=== PATIENT | male | born 1930 | race Caucasian/White ===

== ENCOUNTER 2017-12-31 18:15 | Inpatient (IN) ==
--- NOTE | 2017-12-31 18:32 | XR ---
EXAM DATE: 12/31/2017 6:27 PM EST AGE/SEX: 89 years / Male INDICATIONS: Trauma alert. CLINICAL DATA: This is the patient's initial encounter. Patient reports that signs and symptoms have been present for 1 day and indicates a pain score of Nonresponsive. MEDICAL/SURGICAL HISTORY: Non-responsive. Non-responsive. COMPARISON: No prior exams available for comparison. FINDINGS: A single AP supine portable view of the chest was obtained and demonstrates overlying artifact from a backboard. There is a left subclavian A-V sequential transvenous pacer in place with epicardial pace r lead. The heart size is enlarged with no definite confluent infiltrates or effusions. The tip of th e left costophrenic angle is cut off the exam. There is no evidence of midline shift. Atherosclerotic calcifications are present in the aorta. CONCLUSION: 1. No acute cardiopulmonary disease. 2. Cardiomegaly. Electronically signed by: Fabrizio Onofre MD 12/31/2017 6:30 PM EST
--- NOTE | 2017-12-31 18:33 | XR ---
EXAM DATE: 12/31/2017 6:29 PM EST AGE/SEX: 89 years / Male INDICATIONS: Trauma alert. CLINICAL DATA: This is the patient's initial encounter. Patient reports that signs and symptoms have been present for 1 day and indicates a pain score of Nonresponsive. MEDICAL/SURGICAL HISTORY: Non-responsive. Non-responsive. COMPARISON: No prior exams available for comparison. FINDINGS: A single AP portable supine view of the pelvis was obtained. The patient is rotated and there is over lying artifact from a backboard. The patient is status post left hip arthroplasty. There is diffuse o steopenia with no acute fracture or malalignment. The sacrum appears intact. There are degenerative d isc changes in the lower lumbar spine. Vascular calcifications are present. CONCLUSION: Negative rotated trauma study. Electronically signed by: Fabrizio Onofre MD 12/31/2017 6:32 PM EST
[2017-12-31] MEDS ORDERED: PROTHROMBIN COMPLEX IV.SIG ONE (18:38)
--- NOTE | 2017-12-31 18:41 | CT ---
EXAM DATE: 12/31/2017 6:36 PM EST AGE/SEX: 89 years / Male INDICATIONS: Trauma alert, fall today. CLINICAL DATA: This is the patient's initial encounter. Patient reports that signs and symptoms have been present for 1 day and indicates a pain score of Nonresponsive. MEDICAL/SURGICAL HISTORY: Non-responsive. Non-responsive. RADIATION DOSE: 58.52 CTDI (mGy) COMPARISON: No prior exams available for comparison. TECHNIQUE: CT of the head without contrast. Using automated exposure control and adjustment of the mA and/or kV according to patient size, radiation dose was kept as low as reasonably achievable to ob tain optimal diagnostic quality images. DICOM format image data is available electronically for revi ew and comparison. FINDINGS: Cerebrum: The ventricles are normal for age with moderate atrophic change. No evidence of midline sh ift, mass lesion, hemorrhage or acute infarction. No extraaxial fluid collections are seen. Posterior Fossa: The cerebellum and brainstem are intact. The 4th ventricle is midline. The cerebe llopontine angle is unremarkable. Extracranial: The visualized portion of the orbits is intact. Skull: The calvaria is intact. No evidence of skull fracture. There is soft tissue swelling over th e left parietal bone. CONCLUSION: 1. Soft tissue swelling of the left parietal bone with no evidence of fracture. 2. No acute hemorrhage or mass effect. 3. Moderate atrophic changes. . Electronically signed by: Fabrizio Onofre MD 12/31/2017 6:40 PM EST
[2017-12-31 18:43] LABS: Baso # (Auto) 0.1 th/mm3 (0.0-0.2); Baso % (Auto) 0.8 % (0.0-2.0); Eos # (Auto) 0.5 th/mm3 (0.0-0.4); Eos % (Auto) 5.5 % (0.0-4.0); Hematocrit 42.5 % (39.0-51.0); Hemoglobin 14.3 gm/dL (13.0-17.0); Lymph # (Auto) 2.5 th/mm3 (1.0-4.8); Lymph % (Auto) 27.5 % (9.0-44.0); Mean Corpuscular HGB Conc 33.6 % (32.0-36.0); Mean Corpuscular Hemoglobin 31.4 pg (27.0-34.0); Mean Corpuscular Volume 93.4 fL (80.0-100.0); Mono # (Auto) 1.1 th/mm3 (0.0-0.9); Mono % (Auto) 12.2 % (0.0-8.0); Neut # (Auto) 4.9 th/mm3 (1.8-7.7); Platelet Count 270 th/mm3 (150-450); Red Blood Count 4.55 mil/mm3 (4.50-5.90); Red Cell Distribution Width 15.6 % (11.6-17.2); White Blood Count 9.1 th/mm3 (4.0-11.0)
[2017-12-31 18:54] LABS: INR 1.2 Ratio; Prothrombin Time 11.7 sec (9.8-11.6)
--- NOTE | 2017-12-31 18:54 | CT ---
EXAM DATE: 12/31/2017 6:49 PM EST AGE/SEX: 89 years / Male INDICATIONS: Trauma alert, fall today. CLINICAL DATA: This is the patient's initial encounter. Patient reports that signs and symptoms have been present for 1 day and indicates a pain score of Nonresponsive. MEDICAL/SURGICAL HISTORY: Non-responsive. Non-responsive. RADIATION DOSE: 22.16 CTDI (mGy) COMPARISON: No prior exams available for comparison. TECHNIQUE: Contiguous axial images were obtained using helical multirow detector technique. The vol umetric data was post-processed with multiplanar reconstruction in oblique axial, sagittal, and coron al planes. Using automated exposure control and adjustment of the mA and/or kV according to patient s ize, radiation dose was kept as low as reasonably achievable to obtain optimal diagnostic quality george ges. DICOM format image data is available electronically for review and comparison. FINDINGS: Vertebrae: Normal vertebral body height. There is diffuse osteopenia. There is reversal of the brady l cervical lordosis. The dens is intact. Discs: Diffuse degenerative disc changes noted with disc space narrowing and hypertrophic changes. Alignment: There is retrolisthesis of C4 on C5 of approximately 4 mm. Extensive degenerative changes are noted involving the atlantoaxial joint with calcification and a prominent joint capsule. Axial images demonstrate that the vertebral bodies and posterior elements are intact with no evidence of fracture. Degenerative disc and degenerative joint changes are present. CONCLUSION: 1. No acute fracture. 2. Mild retrolisthesis of C4 on C5 appears degenerative. 3. Diffuse degenerative disc and degenerative joint changes. Electronically signed by: Fabrizio Onofre MD 12/31/2017 6:52 PM EST
[2017-12-31] MEDS ORDERED: Acetaminophen 325 MG Tablet PO PRN (18:57)
--- NOTE | 2017-12-31 18:59 | ED ---
HPI General Stated complaint: Trauma Alert Time Seen by Provider: 12/31/17 18:37 Source: patient, EMS and RN notes reviewed Mode of arrival: EMS History of Present Illness HPI narrative: 87yM brought in by EMS for head injury. The patient was reportedly standing in his driveway and fell backward, hitting his head. It is unclear if he had LOC but his family reported that he was confused after the fall. The patient has a history of dementia and "sun-downing" and is on coumadin and aspirin for A fib. The patient had a GCS of 11 on EMS arrival but improved neurologically during transport. He complains of pain to the back of his head and lower back. Last tetanus 1 year ago. Related Data Allergies Allergy/AdvReac Type Severity Reaction Status Date / Time No Allergy Information Allergy Unverified 12/31/17 18:16 Available Review of Systems ROS: all other systems reviewed are negative PMFSH History History Provided By: Patient Exam Const Other: Mildly agitated, not distressed HENMT Other: 5-6 cm left occipital cephalohematoma, boggy No facial trauma Eyes Other: Pupils 2 mm and reactive bilaterally Neck Other: Trachea midline, cervical collar maintained due to confusion Chest Chest: normal inspection of the chest Resp Auscultation: clear to auscultation bilaterally Cardio Rate: regular rate Rhythm: abnormal rhythm GI Palpation: soft and nontender Back/Spine/Pelvis Other: No midline thoracolumbar tenderness or step-off Superficial abrasions and stage 1 pressure wound to thoracolumbar junction Neuro Other: Awake, oriented to person and time but not place GCS 14 ([id number]) Course Initial Documented Vital Signs Pulse Oximetry 94 L 12/31/17 18:24 Last Documented Vital Signs Pulse Oximetry 94 L 12/31/17 18:24 Critical Care Time Critical Care Time: Yes Total Critical Care Time: 35 Attestation: Counseling/ Coordination of Care: This patient is critically ill with impairment of one or more vital organ systems with a high probability of imminent or life-threatening deterioration. High-complexity medical decision making was required to support vital organ function and/ or prevent deterioration in the patient's condition. Total critical care time spent is 35 minutes giving full attention to this patient. This includes examining and stabilizing the patient, gathering a history from a source other than the patient (i.e., EMS), formulating a differential diagnosis, ordering and interpreting laboratory tests and EKG, ordering and interpreting radiology tests, discussing the patient's care with other providers (trauma, neurosurgery), and documentation. Amount of time is separate from teaching, counseling the patient and/or family, and exclusive of procedures. Medical Decision Making MDM Narrative Medical decision making narrative: Assessment: 87yM presenting with head injury and decreased GCS, on anticoagulants/ antiplatelets Plan: Level 2 trauma called prior to arrival, patient seen in trauma bay by Dr. Osullivan (trauma) and Dr. Chavira (neurosurgery) Patient's CTH shows small right temporal contusion; given that patient is confused and on anticoagulation, the patient will be admitted to intensive care unit under trauma service and I have ordered K-centra, DDAVP, and 2U platelets Medical Screen Exam Complete: Yes Emergency Medical Condition: Yes Differential Diagnosis Differential Diagnosis: Differential diagnosis includes, but is not limited to: ICH, skull fracture, spinal fracture, closed head injury Lab Data Result diagrams: 12/31/17 18:21 Lab Results 12/31/17 12/31/17 Range/Units 18:21 18:21 WBC 9.1 (4.0-11.0) th/mm3 RBC 4.55 (4.50-5.90) mil/mm3 Hgb 14.3 (13.0-17.0) gm/dL POC Hgb (Calc) 15.0 (13.0-17.0) g/dL Hct 42.5 (39.0-51.0) % POC Hct 44.0 (39-51.0) % MCV 93.4 (80.0-100.0) fL MCH 31.4 (27.0-34.0) pg MCHC 33.6 (32.0-36.0) % RDW 15.6 (11.6-17.2) % Plt Count 270 (150-450) th/mm3 MPV 9.0 (7.0-11.0) fL Neut % (Auto) 54.0 (16.0-70.0) % Lymph % (Auto) 27.5 (9.0-44.0) % [place] % (Auto) 12.2 H (0.0-8.0) % Eos % (Auto) 5.5 H (0.0-4.0) % Baso % (Auto) 0.8 (0.0-2.0) % Neut # (Auto) 4.9 (1.8-7.7) th/mm3 Lymph # (Auto) 2.5 (1.0-4.8) th/mm3 [place] # (Auto) 1.1 H (0.0-0.9) th/mm3 Eos # (Auto) 0.5 H (0.0-0.4) th/mm3 Baso # (Auto) 0.1 (0.0-0.2) th/mm3 WBC Differential . Differential Comment Auto diff final POC Sodium 136 L (137-144) mmol/L POC Potassium 5.6 H (3.6-5.0) mmol/L POC Chloride 97 L (102-111) mmol/L POC BUN 19 (5-21) mg/dL POC Creatinine 0.8 (0.6-1.3) mg/dL POC Glucose 122 H (68-110) mg/dL Imaging Data Radiologist's impression: Chest X-Ray 12/31/17 18:17 CONCLUSION: 1. No acute cardiopulmonary disease. 2. Cardiomegaly. Pelvis X-Ray 12/31/17 18:17 CONCLUSION: Negative rotated trauma study. Head CT 12/31/17 18:23 CONCLUSION: 1. Soft tissue swelling of the left parietal bone with no evidence of fracture. 2. No acute hemorrhage or mass effect. 3. Moderate atrophic changes. . Discharge Plan Discharge Disposition Patient Disposition: 30 Still Patient Discharge Condition Condition: Critical Discharge Details Diagnosis: Contusion of right temporal lobe, Medication induced coagulopathy, Cephalohematoma Physicians Team ED Provider: Iman Briseno Primary Care Provider: UNKNOWN, Attending Provider: Elroy Osullivan Status ED Status: Admitted Patient
[2017-12-31] MEDS ORDERED: Sodium Chlor 0.9% Inj 250 ML IV.SIG SCH (19:00)
--- NOTE | 2017-12-31 19:03 | P.HPCC ---
History of Present Illness Primary Care Physician: UNKNOWN Chief Complaint: Headache History of Present Illness: 87yM brought in by EMS for head injury. The patient was reportedly standing in his driveway and fell backward, hitting his head. It is unclear if he had LOC but his family reported that he was confused after the fall. The patient has a history of dementia and "sun-downing" and is on coumadin and aspirin for A fib. The patient had a GCS of 11 on EMS arrival but improved neurologically during transport. He complains of pain to the back of his head and lower back. Inpatient Certification: I certify that the inpatient services were ordered in accordance with Medicare regulations governing the order. This includes certification that hospital inpatient services are reasonable and necessary and in the case of services not specified as inpatient-only under 42 CFR 419.22(n), that they are appropriately provided as inpatient services in accordance to with the 2-midnight benchmark under 43 CFR 412.3(e) Estimated Total Length of Stay (Days): 3 Plans for Post Hospital Care: Not yet determined Review of Systems All other systems reviewed negative except as stated in HPI PMFSH - History History Provided By: Patient - Medical / Surgical Hx Neg / Unobtainable Medical Problems Denied: Unable to Obtain Medications and Allergies Active Medications: Active Medications Acetaminophen (Tylenol) 650 mg PO Q6H PRN PRN Reason: TEMPERATURE > 102 F Hydrocodone Bitart/Acetaminophen ([place] 5/325) 1 tab PO Q4H PRN PRN Reason: Pain 1-5 Chlorhexidine Gluconate (Chlorhexidine 2% Cloth) 3 pack TOPICAL DAILY@0400 NANNETTE Stop: 01/06/18 03:59 Chlorhexidine Gluconate (Chlorhexidine 2% Cloth) 3 pack TOPICAL DAILY@0400 PRN PRN Reason: Extra cloth needed Stop: 01/06/18 03:59 Enalaprilat (Vasotec Inj) 1.25 mg IV.PUSH Q8H PRN PRN Reason: Blood pressure 180/95 Prothrombin Complex Concent ( Human) 5,000 unit/Miscellaneous Medication 0 mls @ 500 mls/hr IV.SIG ONCE ONE Stop: 12/31/17 18:39 Sodium Chloride (Ns Inj) 250 mls @ 15 mls/hr IV.SIG ONCE NANNETTE Stop: 01/01/18 11:39 Lactated Ringer's (Lr 1000 Ml Inj) 1,000 mls @ 100 mls/hr IV.CONT .Q10H NANNETTE Ondansetron HCl (Zofran Inj) 4 mg IV.PUSH Q6H PRN PRN Reason: NAUSEA OR VOMITING Sodium Chloride (Ns Flush) 2 ml IV.FLUSH UNSCH PRN PRN Reason: FLUSH AFTER USING IV ACCESS Allergies Allergy/AdvReac Type Severity Reaction Status Date / Time No Allergy Information Allergy Unverified 12/31/17 18:16 Available Results - Labs CBC & Chem 7: 12/31/17 18:21 Labs: Short CBC 12/31/17 Range/Units 18:21 WBC 9.1 (4.0-11.0) th/mm3 Hgb 14.3 (13.0-17.0) gm/dL Hct 42.5 (39.0-51.0) % Plt Count 270 (150-450) th/mm3 - Imaging Impressions Chest X-Ray 12/31/17 18:17 CONCLUSION: 1. No acute cardiopulmonary disease. 2. Cardiomegaly. Pelvis X-Ray 12/31/17 18:17 CONCLUSION: Negative rotated trauma study. Cervical Spine CT 12/31/17 18:23 CONCLUSION: 1. No acute fracture. 2. Mild retrolisthesis of C4 on C5 appears degenerative. 3. Diffuse degenerative disc and degenerative joint changes. Head CT 12/31/17 18:23 CONCLUSION: 1. Soft tissue swelling of the left parietal bone with no evidence of fracture. 2. No acute hemorrhage or mass effect. 3. Moderate atrophic changes. . Exam Vital signs: Vital Signs 12/31/17 18:24 Pulse Oximetry 94 L - Constitutional no acute distress, agitated - Routine HEENT Exam Head: Present: normocephalic, hematoma (Posterior scalp) Eye: Present: EOMI, PERRL ENT: Present: mucous membranes dry - Routine Neck Exam Present: trachea midline. Absent: tenderness, trauma - Routine Chest/Breast/Axilla Exam Chest wall: Absent: tenderness - Routine Respiratory Exam Present: decreased breath sounds, CTA bilaterally - Routine Cardiovascular Exam Present: RRR - Routine Abdominal Exam Present: soft. Absent: tenderness, distended - Routine Extremities Exam Absent: cyanosis, clubbing, edema - Routine Skin Exam Present: dry, warm - Routine Neurological Exam Present: alert, altered mental status (Mild confusion and agitation) Caprini VTE Risk Assessment Caprini VTE Risk Assessment: Moderate/High Risk (score >= 2) VTE Pharmacological Exception Reason: Hemorrhage Caprini Risk Assessment Model: Point Value = 1 Point Value = 2 Point Value = 3 Point Value = 5 Age 41-60 Minor surgery BMI > 25 kg/m2 Swollen legs Varicose veins or History of unexplained or recurrent spontaneous Oral contraceptives or hormone replacement Sepsis (< 1 month) Serious lung disease, including pneumonia (< 1 month) Abnormal pulmonary function Acute myocardial infarction Congestive heart failure (< 1 month) History of inflammatory bowel disease Medical patient at bed rest Age 61-74 Arthroscopic surgery Major open surgery (> 45 min) Laparoscopic surgery (> 45 min) Malignancy Confined to bed (> 72 hours) Immobilizing plaster cast Central venous access Age >= 75 History of VTE Family history of VTE Factor V Leiden Prothrombin [id number] Lupus anticoagulant Anticardiolipin antibodies Elevated serum homocysteine Heparin-induced thrombocytopenia Other congenital or acquired thrombophilia Stroke (< 1 month) Elective arthroplasty Hip, pelvis, or leg fracture Acute spinal cord injury (< 1 month) Prophylaxis Regimen: Total Risk Factor Score Risk Level Prophylaxis Regimen 0-1 Low Early ambulation 2 Moderate Order ONE of the following: *Sequential Compression Device (SCD) *Heparin 5000 units SQ BID 3-4 Higher Order ONE of the following medications: *Heparin 5000 units SQ TID *Enoxaparin/Lovenox 40 mg SQ daily (WT < 150 kg, CrCl > 30 mL/min) *Enoxaparin/Lovenox 30 mg SQ daily (WT < 150 kg, CrCl > 10-29 mL/min) *Enoxaparin/Lovenox 30 mg SQ BID (WT < 150 kg, CrCl > 30 mL/min) AND/OR *Sequential Compression Device (SCD) 5 or more Highest Order ONE of the following medications: *Heparin 5000 units SQ TID (Preferred with Epidurals) *Enoxaparin/Lovenox 40 mg SQ daily (WT < 150 kg, CrCl > 30 mL/min) *Enoxaparin/Lovenox 30 mg SQ daily (WT < 150 kg, CrCl > 10-29 mL/min) *Enoxaparin/Lovenox 30 mg SQ BID (WT < 150 kg, CrCl > 30 mL/min) AND *Sequential Compression Device (SCD) Assessment and Plan - Assessment and Plan Plan: Cerebral contusion following a fall on aspirin and Coumadin Transfuse 2 units of platelets with DDAVP for platelet dysfunction secondary to aspirin use Kcentra dose based on pending INR for warfarin coagulopathy Dr. Chavira present in CT scan and agrees with plan Repeat head CT in the morning
--- NOTE | 2017-12-31 19:18 | CT ---
EXAM DATE: 12/31/2017 7:00 PM EST AGE/SEX: 89 years / Male INDICATIONS: Trauma alert, fall today. CLINICAL DATA: This is the patient's initial encounter. Patient reports that signs and symptoms have been present for 1 day and indicates a pain score of Nonresponsive. MEDICAL/SURGICAL HISTORY: Non-responsive. Non-responsive. RADIATION DOSE: 34.76 CTDI (mGy) ; Combined studies COMPARISON: No prior exams available for comparison. TECHNIQUE: Contiguous axial images were acquired using a multirow detector CT scanner without contra st. Multiplanar reconstruction in the sagittal and coronal planes was performed. Using automated exp osure control and adjustment of the mA and/or kV according to patient size, radiation dose was kept a s low as reasonably achievable to obtain optimal diagnostic quality images. DICOM format image data is available electronically for review and comparison. FINDINGS: Vertebrae: There is a chronic compression fracture deformity of the T12 vertebral body with invagina tion of the superior and inferior endplates with wedging and sclerosis. There is no retropulsion. The re is mild chronic-appearing invagination of the superior endplate of T2 with sclerosis. There is dif fuse osteopenia and mild scoliosis. Discs: Degenerative disc changes are present with disc space loss, sclerosis and hypertrophic changes . Alignment: Normal. No subluxation. The axial images demonstrate osteopenia, degenerative change and mild scoliosis with no visualized fr acture. The paraspinous soft tissues are intact. There is a subtle nondisplaced fracture involving th e right posterior medial 12th rib best seen on axial images numbers 133 through 136. CONCLUSION: 1. Subtle nondisplaced fracture involving the right posterior medial 12th rib. 2. No definite acute fracture or malalignment of the vertebral bodies. 3. Chronic appearing compression fracture deformities of the T12 and T2 vertebral bodies with sclero sis. Electronically signed by: Fabrizio Onofre MD 12/31/2017 7:16 PM EST
--- NOTE | 2017-12-31 19:22 | CT ---
EXAM DATE: 12/31/2017 7:01 PM EST AGE/SEX: 89 years / Male INDICATIONS: Trauma alert, fall today. CLINICAL DATA: This is the patient's initial encounter. Patient reports that signs and symptoms have been present for 1 day and indicates a pain score of Nonresponsive. MEDICAL/SURGICAL HISTORY: Non-responsive. Non-responsive. RADIATION DOSE: 34.76 CTDI (mGy) ; Combined studies COMPARISON: C, CT THORACIC SPINE W/O CONTRAST, 12/31/2017. . TECHNIQUE: Contiguous axial images were acquired with a multirow detector CT scanner without contras t. Multiplanar reconstructions in the sagittal and coronal plane were also performed. Using automate d exposure control and adjustment of the mA and/or kV according to patient size, radiation dose was k ept as low as reasonably achievable to obtain optimal diagnostic quality images. DICOM format image data is available electronically for review and comparison. FINDINGS: Vertebrae: Chronic appearing mild compression fracture deformity of the T12 vertebral body with ante rior wedging and diffuse sclerosis. There is no distinct fracture line identified. The lumbar vertebr al bodies are intact no evidence of fracture. There is a mild to moderate scoliosis. Discs: Diffuse degenerative disc changes noted with disc space narrowing, sclerosis and spurring. Alignment: There is mild retrolisthesis of L2 on L3 and L3-L4 which are chronic in appearance. The axial images demonstrate that the vertebral bodies and posterior elements are intact with no defi nite acute fracture. Chronic appearing compression fracture deformity of the T12 vertebral bodies aga in noted with no retropulsion. Degenerative disc and degenerative joint changes are present. The visu alized portions of the sacrum are intact. Visualized portions of the sacroiliac joints are congruent. There is a mild to moderate scoliosis again noted. Fracture of the right posterior medial 12th rib i s again visualized. CONCLUSION: 1. The lumbar vertebral bodies are intact. 2. Chronic appearing compression fracture deformity of the T12 vertebral body again noted with scler osis and no definite acute fracture line. 3. Subtle nondisplaced fracture the right posterior medial 12th rib is again visualized. 4. Diffuse degenerative disc and degenerative joint changes as well as scoliosis. 5. Mild retrolisthesis of L2 on L3 and L3 and L4 are chronic in appearance. Electronically signed by: Fabrizio Onofre MD 12/31/2017 7:20 PM EST
--- NOTE | 2017-12-31 20:43 | P.CONNS ---
History of Present Illness Service: neurosurgery Consult date: 12/31/17 Requesting Physician: Elroy Osullivan Reason for Consult: Trauma alert Primary Care Provider: UNKNOWN Chief Complaint: Fall, TBI History of Present Illness: This is a 87y year old male brought to [facility] as Trauma Alert by EMS with a head injury. He was reportedly standing in his driveway and fell backward , hitting his head. It is unclear if he had LOC but his family reported that he was confused after the fall. No seizure activity reported. No tongue bitting. No incontinence of stool or urine. The patient has a history of dementia and daily "sun-downing" in the evenings. hed is on coumadin and aspirin for Atrial fib. He had a GCS of 11 on EMS arrival but improved neurologically during transport. He is confused and agitated. He complains of pain to the back of his head and lower back. Past medical history, social history, family history we are Unable to Obtain due to his condition and agitation Review of Systems unobtainable due to mental condition, unobtainable due to mental status PMFSH - History History Provided By: Patient - Medical / Surgical Hx Neg / Unobtainable Medical Problems Denied: Unable to Obtain Medications and Allergies Active Medications: Active Medications Acetaminophen (Tylenol) 650 mg PO Q6H PRN PRN Reason: TEMPERATURE > 102 F Hydrocodone Bitart/Acetaminophen ([place] 5/325) 1 tab PO Q4H PRN PRN Reason: Pain 1-5 Chlorhexidine Gluconate (Chlorhexidine 2% Cloth) 3 pack TOPICAL DAILY@0400 NANNETTE Stop: 01/06/18 03:59 Chlorhexidine Gluconate (Chlorhexidine 2% Cloth) 3 pack TOPICAL DAILY@0400 PRN PRN Reason: Extra cloth needed Stop: 01/06/18 03:59 Enalaprilat (Vasotec Inj) 1.25 mg IV.PUSH Q8H PRN PRN Reason: Blood pressure 180/95 Sodium Chloride (Ns Inj) 250 mls @ 15 mls/hr IV.SIG ONCE NANNETTE Stop: 01/01/18 11:39 Lactated Ringer's (Lr 1000 Ml Inj) 1,000 mls @ 100 mls/hr IV.CONT .Q10H NANNETTE Last Admin: 12/31/17 19:24 Dose: 100 mls/hr Ondansetron HCl (Zofran Inj) 4 mg IV.PUSH Q6H PRN PRN Reason: NAUSEA OR VOMITING Sodium Chloride (Ns Flush) 2 ml IV.FLUSH UNSCH PRN PRN Reason: FLUSH AFTER USING IV ACCESS Allergies Allergy/AdvReac Type Severity Reaction Status Date / Time No Allergy Information Allergy Unverified 12/31/17 18:16 Available Exam Vital signs: Vital Signs 12/31/17 18:24 12/31/17 20:19 Temperature 97.6 F Pulse Rate 84 Respiratory Rate 21 Blood Pressure 141/86 H Pulse Oximetry 94 L 100 Intake & Output 12/31/17 12/31/17 01/01/18 06:59 18:59 06:59 Intake Total 0 / 0 Balance 0 / 0 Intake: Intake (Blood Product) Amt 0 / 0 Prepooled Plts Leukoreduced 5d 0 / 0 Unit [id number] Narrative: The patient is alert, awake and oriented to self and agitated. Large cephalohematoma in head. GCS 14 Cranial nerve examination demonstrates the pupils to be equal, round, and reactive to light. Extra-ocular movements are intact with normal convergence. Facial motornormal and symmetrical.face sensation,hearing, visual acuity, taste, and olfaction can not be assessed due to the patient's neurological condition.Sternocleidomastoid and deltoid musclesasymmetrical. Neck is soft and supple. Muscle testing revealsnormal bulk and tonewith gross normalstrength in both upper and lowerextremities Sensory examination isgrossly normal Deep tendon reflexes are1+ and symmetrical in upper andlower extremities. Bilateral plantar flexion response. Hoffmanns sign is negative. There is no clonus or other abnormal reflexes noted. Cerebellar examinationcan not be assessed due the patient's neurological condition Lungs: clear Heart: Regular rhythm and rate Skin: warm and dry Results - Laboratory Findings CBC and BMP: 12/31/17 18:21 Abnormal lab findings: Abnormal Labs 12/31/17 12/31/17 12/31/17 18:21 18:21 18:21 [place] % (Auto) 12.2 H Eos % (Auto) 5.5 H [place] # (Auto) 1.1 H Eos # (Auto) 0.5 H PT 11.7 H APTT 23.0 L POC Sodium 136 L POC Potassium 5.6 H POC Chloride 97 L POC Glucose 122 H Assessment and Plan - Plan Cerebral contusion following a fall on aspirin and Coumadin I have reviewed the clinical and radiological findings. Neuro: neuro checks in a serial fashion. I suspect a hemorrhagic contusion in his right temporal lobe with traumatic SAH, no mass effect or midline shift. Follow up CT in Am Transfuse 2 units of platelets with DDAVP for platelet dysfunction secondary to aspirin use Kcentra dose based on pending INR for warfarin coagulopathy Severe degenerative changes in cervical spine with spondylosis. May benefit by flexion extension xrays in AM. I do not see any fracture Pulmonary: aggressive pulmonary toilette, nasotracheal suction, and breathing treatments with nebulizers. Daily PT and OT Renal: Continue to monitor closely urine output, BUN and creatinine Endocrine: Continue to Monitor serial Acu checks and SSI as needed in detail ID continue to monitor for signs of infection Continue Protonix for stress ulcer prophylaxis Continue Shorty hose and SCD's for DVT prophylaxis Further recommendations will be provided depending on the patient's clinical evaluation and follow up studies. Caprini VTE Risk Assessment Caprini VTE Risk Assessment: Moderate/High Risk (score >= 2) VTE Pharmacological Exception Reason: Hemorrhage Caprini Risk Assessment Model: Point Value = 1 Point Value = 2 Point Value = 3 Point Value = 5 Age 41-60 Minor surgery BMI > 25 kg/m2 Swollen legs Varicose veins or History of unexplained or recurrent spontaneous Oral contraceptives or hormone replacement Sepsis (< 1 month) Serious lung disease, including pneumonia (< 1 month) Abnormal pulmonary function Acute myocardial infarction Congestive heart failure (< 1 month) History of inflammatory bowel disease Medical patient at bed rest Age 61-74 Arthroscopic surgery Major open surgery (> 45 min) Laparoscopic surgery (> 45 min) Malignancy Confined to bed (> 72 hours) Immobilizing plaster cast Central venous access Age >= 75 History of VTE Family history of VTE Factor V Leiden Prothrombin [id number] Lupus anticoagulant Anticardiolipin antibodies Elevated serum homocysteine Heparin-induced thrombocytopenia Other congenital or acquired thrombophilia Stroke (< 1 month) Elective arthroplasty Hip, pelvis, or leg fracture Acute spinal cord injury (< 1 month) Prophylaxis Regimen: Total Risk Factor Score Risk Level Prophylaxis Regimen 0-1 Low Early ambulation 2 Moderate Order ONE of the following: *Sequential Compression Device (SCD) *Heparin 5000 units SQ BID 3-4 Higher Order ONE of the following medications: *Heparin 5000 units SQ TID *Enoxaparin/Lovenox 40 mg SQ daily (WT < 150 kg, CrCl > 30 mL/min) *Enoxaparin/Lovenox 30 mg SQ daily (WT < 150 kg, CrCl > 10-29 mL/min) *Enoxaparin/Lovenox 30 mg SQ BID (WT < 150 kg, CrCl > 30 mL/min) AND/OR *Sequential Compression Device (SCD) 5 or more Highest Order ONE of the following medications: *Heparin 5000 units SQ TID (Preferred with Epidurals) *Enoxaparin/Lovenox 40 mg SQ daily (WT < 150 kg, CrCl > 30 mL/min) *Enoxaparin/Lovenox 30 mg SQ daily (WT < 150 kg, CrCl > 10-29 mL/min) *Enoxaparin/Lovenox 30 mg SQ BID (WT < 150 kg, CrCl > 30 mL/min) AND *Sequential Compression Device (SCD)
[2018-01-01 03:53] LABS: Baso # (Auto) 0.1 th/mm3 (0.0-0.2); Baso % (Auto) 0.7 % (0.0-2.0); Eos # (Auto) 0.2 th/mm3 (0.0-0.4); Eos % (Auto) 1.9 % (0.0-4.0); Hematocrit 38.6 % (39.0-51.0); Hemoglobin 13.1 gm/dL (13.0-17.0); Lymph # (Auto) 1.8 th/mm3 (1.0-4.8); Lymph % (Auto) 19.2 % (9.0-44.0); Mean Corpuscular HGB Conc 33.8 % (32.0-36.0); Mean Corpuscular Hemoglobin 31.9 pg (27.0-34.0); Mean Corpuscular Volume 94.5 fL (80.0-100.0); Mean Platelet Volume 7.9 fL (7.0-11.0); Mono # (Auto) 1.2 th/mm3 (0.0-0.9); Mono % (Auto) 12.6 % (0.0-8.0); Neut # (Auto) 6.3 th/mm3 (1.8-7.7); Neut % (Auto) 65.6 % (16.0-70.0); Platelet Count 307 th/mm3 (150-450); Red Blood Count 4.09 mil/mm3 (4.50-5.90); Red Cell Distribution Width 15.2 % (11.6-17.2); White Blood Count 9.6 th/mm3 (4.0-11.0)
[2018-01-01] MEDS ORDERED: Chlorhexidine Gluconate 2% 1 Pack (2 Cloths) TOPICAL SCH (04:00)
[2018-01-01] MEDS ORDERED: Chlorhexidine Gluconate 2% 1 Pack (2 Cloths) TOPICAL PRN (04:00)
[2018-01-01 04:14] LABS: Anion Gap 11 meq/L (5-15); Blood Urea Nitrogen 15 mg/dL (7-18); Calcium 8.7 mg/dL (8.5-10.1); Carbon Dioxide 26.8 meq/L (21.0-32.0); Chloride 100 meq/L (98-107); Glomerular Filtration Rate Greater Than 89 mL/min (>89); Glucose,Random 133 mg/dL (74-106); Potassium 4.1 meq/L (3.5-5.1); Sodium 138 meq/L (136-145)
--- NOTE | 2018-01-01 05:01 | CT ---
EXAM DATE: 01/01/2018 4:40 AM EST AGE/SEX: 87 years / Male INDICATIONS: Intracerebral hemorrhage. CLINICAL DATA: This is the patient's initial encounter. Patient reports that signs and symptoms have been present for 1 day and indicates a pain score of Nonresponsive. MEDICAL/SURGICAL HISTORY: Non-responsive. Non-responsive. RADIATION DOSE: 40.59 CTDI (mGy) [place] [facility] [place]. . TECHNIQUE: CT of the head without contrast. Using automated exposure control and adjustment of the mA and/or kV according to patient size, radiation dose was kept as low as reasonably achievable to ob tain optimal diagnostic quality images. DICOM format image data is available electronically for revi ew and comparison. FINDINGS: There is stable minimal right temporal contusion. No evidence of significant edema or mass effect. St able symmetric prominence of the ventricles and extra-axial sulcal spaces consistent with atrophy. No evidence of mass. Nothing to suggest acute infarction. Left parietal scalp swelling and scalp hemato ma without evidence of underlying fracture. CONCLUSION: Stable mild right temporal cortical contusions . Electronically signed by: Nazario Alvarez MD 01/01/2018 5:00 AM EST
[2018-01-01] MEDS ORDERED: Dextrose 50% in Water 50 ML Vial IV.PUSH PRN (08:19)
[2018-01-01] MEDS ORDERED: Magnesium Oxide 400 MG Tablet PO SCH (09:00)
[2018-01-01] MEDS ORDERED: Famotidine 20 MG Tablet PO SCH (09:00)
[2018-01-01] MEDS ORDERED: Digoxin 250 MCG Tablet PO SCH (09:00)
[2018-01-01] MEDS ORDERED: Finasteride 5 MG Tablet PO SCH (09:00)
[2018-01-01] MEDS ORDERED: Senna/Docusate Sodium 8.6/50 MG Tablet PO SCH (09:00)
--- NOTE | 2018-01-01 10:44 | P.DCO ---
- Physical Therapy Order: Evaluate and treat, Improve ambulation, Strength and gait training - Occupational Therapy Order: Evaluate and treat, Improve ADL, Gross motor coordination - Home Health Nursing Order: Medical education, Signs/symptoms of disease process, Diabetic education , Medication education-adverse effect, Nursing assessment with vital signs - Case Management Consult Yes - Certification I have seen patient Oscar Tierney on 01/01/18. My clinical findings support the need for the requested home health care services because: Limited mobility due to disease progression, Patient has SOB, Deconditioned with increased weakness, Medication compliance is questionable, Limited ability to care for self, Impaired cognition/judgement, High risk of falls I certify that my clinical findings support that this patient is homebound because: Impaired cognitive ability/safety, Unsteady gait/balance, Unsafe to leave home unassisted, Need for psychosocial assistance, Unable to use public transportation
[2018-01-01 11:17] VITALS: BP 137/76; PULSE 75; RESP 23; TEMP 97.6; O2SAT 98
[2018-01-01] MEDS ORDERED: Insulin NovoLOG Aspart Correctional Sugar Inj SQ SCH (12:00)
--- NOTE | 2018-01-01 13:42 | P.DS ---
<Italia Moya F - Last Filed: 01/01/18 13:34> Date of admission: 12/31/17 18:37 Primary care physician: UNKNOWN Attending physician on discharge: Elroy Osullivan Anticipated date of discharge: 01/01/18 Brief History from admission: Mechanical fall. DS: Diagnosis - Discharge Diagnosis (1) Contusion of right temporal lobe Status: Acute (2) Medication induced coagulopathy Status: Acute (3) Cephalohematoma Status: Acute DS: Summary Hospital Course: SOBOBA: This is a 87yM brought in by EMS for head injury. The patient was reportedly standing in his driveway and fell backward, hitting his head. It is unclear if he had LOC but his family reported that he was confused after the fall. The patient has a history of dementia and "sun-downing" and is on coumadin and aspirin for A fib. The patient had a GCS of 11 on EMS arrival but improved neurologically during transport. He complains of pain to the back of his head and lower back. INJURIES: RIGHT temporal contusion PMHx: DM. Afib (On Coumadin and ASA) Dementia and sun-downers. Prostate Consults: Neurosurgery. Case management. Repeat CT brain this a.m. shows stable right temporal contusion. Patient is cleared by both trauma surgery and neurosurgery for DC today. The patient is now tolerating a po diet. Eating and drinking well. Pain is being managed well with PO pain medications, and patient may use Tylenol OTC for pain control. (Patient has not required any narcotics during hospital stay) Pt is having regular bowel movements, and have recommended to patient to continue with stool softeners while taking narcotic pain medications to prevent constipation. Pt has been participating in PT and OT while admitted at [place] and has been ambulating with their assistance and independently. PT recommends rehab, however pt's family would like to take the patient home. There will be someone with the patient 24 hours a day/7 days a week to provide care for him. [facility] PT ordered -[id number] completed. All follow up appointments have been provided and discussed with the patient. It is recommended that the patient keeps all his follow up appointments for continued recovery. Patient is encouraged to follow-up in [place] his concussion clinic. Patient's condition and plan of care discussed with collaborating trauma surgeon. He is agreeable to plan for discharge today. Therefore, the patient is stable to be safely discharged home w/ [facility] from a trauma surgery standpoint. Thank you for allowing us to participate in his care. We wish Oscar the best in his recovery. RIGHT temporal contusion History of dementia and sundowners Neurosurgery consulted and assisting in management and care Supportive care Serial neuro checks 01/01: CT brain -stable right temporal contusion Repeat CT brain for any change in neurological status Pain management Encourage out of bed PT and OT ordered Bowel regimen Neurosurgery has cleared the patient for discharge Follow-up outpatient DM A. fib (on Coumadin and ASA) Enlarged prostate ADA diet Sliding scale insulin AC HS Resume metformin tomorrow Resume home meds Digoxin 250mcg QD. Proscar 5 mg QD. Flomax. - Time Spent with Patient Total time spent providing and/or coordinating discharge services: Greater than 30 minutes - Quality: VTE Deep Vein Thrombosis/Pulmonary Embolism Present on Admission: No Exam Vital signs: Vital Signs 12/31/17 18:24 12/31/17 18:57 12/31/17 19:00 Temperature Pulse Rate 89 89 Respiratory Rate 69 H 91 H Blood Pressure Pulse Oximetry 94 L 100 98 12/31/17 19:01 12/31/17 19:02 12/31/17 19:16 Temperature Pulse Rate 90 88 86 Respiratory Rate 91 H 97 H 61 H Blood Pressure 179/103 H 178/104 H 161/94 H Pulse Oximetry 100 100 100 12/31/17 19:32 12/31/17 20:00 12/31/17 20:02 Temperature 97.6 F Pulse Rate 85 80 83 Respiratory Rate 77 H 22 120 H Blood Pressure 165/74 H 165/74 H 141/86 H Pulse Oximetry 99 100 100 12/31/17 20:19 12/31/17 20:32 12/31/17 20:35 Temperature 97.6 F Pulse Rate 84 85 Respiratory Rate 21 110 H Blood Pressure 141/86 H 145/90 H Pulse Oximetry 100 99 100 12/31/17 21:00 12/31/17 21:02 12/31/17 21:18 Temperature 97.9 F Pulse Rate 77 78 81 Respiratory Rate 99 H 122 H 20 Blood Pressure 160/84 H 160/84 H Pulse Oximetry 98 98 97 12/31/17 21:32 12/31/17 22:00 12/31/17 22:02 Temperature Pulse Rate 79 75 75 Respiratory Rate 113 H 116 H 124 H Blood Pressure 147/88 H 135/74 Pulse Oximetry 98 97 97 12/31/17 22:57 12/31/17 23:00 12/31/17 23:02 Temperature Pulse Rate 83 82 81 Respiratory Rate 111 H 136 H 132 H Blood Pressure 139/87 158/89 H Pulse Oximetry 91 L 91 L 12/31/17 23:32 01/01/18 00:00 01/01/18 00:02 Temperature 97.7 F Pulse Rate 81 76 75 Respiratory Rate 122 H 21 133 H Blood Pressure 152/86 H 143/85 H 143/85 H Pulse Oximetry 97 98 98 01/01/18 00:32 01/01/18 01:00 01/01/18 01:02 Temperature Pulse Rate 82 78 79 Respiratory Rate 137 H 138 H 137 H Blood Pressure 154/87 H 160/98 H Pulse Oximetry 98 98 98 01/01/18 01:32 01/01/18 02:00 01/01/18 02:02 Temperature Pulse Rate 88 77 76 Respiratory Rate 127 H 92 H 92 H Blood Pressure 154/87 H 144/84 H Pulse Oximetry 97 97 97 01/01/18 02:32 01/01/18 03:00 01/01/18 03:02 Temperature Pulse Rate 80 77 77 Respiratory Rate 96 H 110 H 101 H Blood Pressure 161/90 H 144/89 H Pulse Oximetry 98 95 95 01/01/18 03:32 01/01/18 04:00 01/01/18 04:02 Temperature 97.7 F Pulse Rate 78 75 76 Respiratory Rate 20 19 19 Blood Pressure 140/87 141/79 H 141/79 H Pulse Oximetry 89 L 01/01/18 06:00 01/01/18 07:02 01/01/18 08:00 Temperature 97.6 F Pulse Rate 74 75 83 Respiratory Rate 23 25 H Blood Pressure 141/91 H 147/87 H Pulse Oximetry 90 L 95 01/01/18 08:24 01/01/18 09:02 01/01/18 10:00 Temperature Pulse Rate 79 75 Respiratory Rate 26 H 23 Blood Pressure 148/89 H 161/88 H Pulse Oximetry 94 L 95 98 01/01/18 11:00 Temperature Pulse Rate 75 Respiratory Rate 23 Blood Pressure 137/76 Pulse Oximetry 98 Intake & Output 12/31/17 01/01/18 01/01/18 18:59 06:59 18:59 Intake Total 761 / 761 1000 / 1000 Output Total 200 / 200 Balance 561 / 561 1000 / 1000 Weight 97 kg Intake: IV 50 / 50 1000 / 1000 LR 1000 mL Inj 1,000 ML @ 100 1000 / 1000 mls/hr IV.CONT .Q10H NANNETTE Rx#: [id number] NS Inj 250 ML @ 15 mls/hr IV. 50 / 50 SIG ONCE NANNETTE Rx#:[id number] Oral 240 / 240 Intake (Blood Product) Amt 471 / 471 Plt Pheresis S Leukoreduced 247 / 247 Unit [id number] Prepooled Plts Leukoreduced 5d 224 / 224 Unit [id number] Output: Urine 200 / 200 Other: # Incontinent Voids 3 # Bowel Movements 0 Narrative: GENERAL: This is a 87-year-old male sitting up in bed. No distress noted. SKIN: Warm and dry. HEAD: Atraumatic. Normocephalic. EYES: PERRLA ENT: No nasal bleeding or discharge. Mucous membranes pink and moist. NECK: Trachea midline. No JVD. CARDIOVASCULAR: Regular rate and rhythm. RESPIRATORY: No accessory muscle use. Lungs are clear to auscultation. Breath sounds equal bilaterally. No distress or dyspnea. GASTROINTESTINAL: BS + x 4 quads. Abdomen soft, non-tender, nondistended. MUSCULOSKELETAL: Extremities without cyanosis, or edema. + peripheral pulses x 4 extremities. Warm with good capillary refill and sensation. MAEW. NEUROLOGICAL: Awake and alert. Normal speech and pattern. Results Procedures completed during hospitalization: . Labs on day of discharge: Labs from last 24 hours 01/01/18 01/01/18 01/01/18 09:40 03:03 03:03 WBC 9.6 RBC 4.09 L Hgb 13.1 POC Hgb (Calc) Hct 38.6 L POC Hct MCV 94.5 MCH 31.9 MCHC 33.8 RDW 15.2 Plt Count 307 MPV 7.9 Neut % (Auto) 65.6 Lymph % (Auto) 19.2 [place] % (Auto) 12.6 H Eos % (Auto) 1.9 Baso % (Auto) 0.7 Neut # (Auto) 6.3 Lymph # (Auto) 1.8 [place] # (Auto) 1.2 H Eos # (Auto) 0.2 Baso # (Auto) 0.1 WBC Differential . Differential Comment Auto diff final PT INR APTT POC Sodium Sodium 138 POC Potassium Potassium 4.1 POC Chloride Chloride 100 Carbon Dioxide 26.8 Anion Gap 11 POC BUN BUN 15 Creatinine 0.78 POC Creatinine Estimated GFR Greater than 89 POC Glucose 121 H Random Glucose 133 H Calcium 8.7 Nasal Screen MRSA (PCR) Blood Type Antibody Screen Bld Prod Order Comment 12/31/17 12/31/17 12/31/17 19:50 18:38 18:21 WBC RBC Hgb POC Hgb (Calc) Hct POC Hct MCV MCH MCHC RDW Plt Count MPV Neut % (Auto) Lymph % (Auto) [place] % (Auto) Eos % (Auto) Baso % (Auto) Neut # (Auto) Lymph # (Auto) [place] # (Auto) Eos # (Auto) Baso # (Auto) WBC Differential Differential Comment PT INR APTT POC Sodium Sodium POC Potassium Potassium POC Chloride Chloride Carbon Dioxide Anion Gap POC BUN BUN Creatinine POC Creatinine Estimated GFR POC Glucose Random Glucose Calcium Nasal Screen MRSA (PCR) Not detected Blood Type A Positive Antibody Screen Negative Bld Prod Order Comment 12/31/17 12/31/17 12/31/17 18:21 18:21 18:21 WBC 9.1 RBC 4.55 Hgb 14.3 POC Hgb (Calc) 15.0 Hct 42.5 POC Hct 44.0 MCV 93.4 MCH 31.4 MCHC 33.6 RDW 15.6 Plt Count 270 MPV 9.0 Neut % (Auto) 54.0 Lymph % (Auto) 27.5 [place] % (Auto) 12.2 H Eos % (Auto) 5.5 H Baso % (Auto) 0.8 Neut # (Auto) 4.9 Lymph # (Auto) 2.5 [place] # (Auto) 1.1 H Eos # (Auto) 0.5 H Baso # (Auto) 0.1 WBC Differential . Differential Comment Auto diff final PT 11.7 H INR 1.2 APTT 23.0 L POC Sodium 136 L Sodium POC Potassium 5.6 H Potassium POC Chloride 97 L Chloride Carbon Dioxide Anion Gap POC BUN 19 BUN Creatinine POC Creatinine 0.8 Estimated GFR POC Glucose 122 H Random Glucose Calcium Nasal Screen MRSA (PCR) Blood Type Antibody Screen Bld Prod Order Comment - Impressions ITS Impressions Chest X-Ray 12/31/17 18:17 CONCLUSION: 1. No acute cardiopulmonary disease. 2. Cardiomegaly. Pelvis X-Ray 12/31/17 18:17 CONCLUSION: Negative rotated trauma study. Cervical Spine CT 12/31/17 18:23 CONCLUSION: 1. No acute fracture. 2. Mild retrolisthesis of C4 on C5 appears degenerative. 3. Diffuse degenerative disc and degenerative joint changes. Lumbar Spine CT 12/31/17 18:23 CONCLUSION: 1. The lumbar vertebral bodies are intact. 2. Chronic appearing compression fracture deformity of the T12 vertebral body again noted with sclerosis and no definite acute fracture line. 3. Subtle nondisplaced fracture the right posterior medial 12th rib is again visualized. 4. Diffuse degenerative disc and degenerative joint changes as well as scoliosis. 5. Mild retrolisthesis of L2 on L3 and L3 and L4 are chronic in appearance. Thoracic Spine CT 12/31/17 18:23 CONCLUSION: 1. Subtle nondisplaced fracture involving the right posterior medial 12th rib. 2. No definite acute fracture or malalignment of the vertebral bodies. 3. Chronic appearing compression fracture deformities of the T12 and T2 vertebral bodies with sclerosis. Head CT 01/01/18 06:00 CONCLUSION: Stable mild right temporal cortical contusions . <Elroy Osullivan - Last Filed: 01/02/18 08:51> Date of admission: 12/31/17 18:37 Primary care physician: UNKNOWN DS: Summary - Time Spent with Patient Total time spent providing and/or coordinating discharge services: Exam Vital signs: Vital Signs 01/01/18 09:02 01/01/18 10:00 01/01/18 11:00 Pulse Rate 79 75 75 Respiratory Rate 26 H 23 23 Blood Pressure 148/89 H 161/88 H 137/76 Pulse Oximetry 95 98 98 Intake & Output 01/01/18 01/02/18 01/02/18 18:59 06:59 18:59 Intake Total 1000 / 1000 Balance 1000 / 1000 Intake: IV 1000 / 1000 LR 1000 mL Inj 1,000 ML @ 100 1000 / 1000 mls/hr IV.CONT .Q10H NANNETTE Rx#: [id number] - Additional findings Additional findings: The exam, history, and the medical decision-making described in the above note were completed with the assistance of the mid-level provider. I reviewed and agree with the findings presented. I attest that I had a [id number] encounter with the patient on the same day, and personally performed my assessment and findings in the medical record. Results Labs on day of discharge: Labs from last 24 hours 01/01/18 09:40 POC Glucose 121 H - Impressions ITS Impressions Chest X-Ray 12/31/17 18:17 CONCLUSION: 1. No acute cardiopulmonary disease. 2. Cardiomegaly. Pelvis X-Ray 12/31/17 18:17 CONCLUSION: Negative rotated trauma study. Cervical Spine CT 12/31/17 18:23 CONCLUSION: 1. No acute fracture. 2. Mild retrolisthesis of C4 on C5 appears degenerative. 3. Diffuse degenerative disc and degenerative joint changes. Lumbar Spine CT 12/31/17 18:23 CONCLUSION: 1. The lumbar vertebral bodies are intact. 2. Chronic appearing compression fracture deformity of the T12 vertebral body again noted with sclerosis and no definite acute fracture line. 3. Subtle nondisplaced fracture the right posterior medial 12th rib is again visualized. 4. Diffuse degenerative disc and degenerative joint changes as well as scoliosis. 5. Mild retrolisthesis of L2 on L3 and L3 and L4 are chronic in appearance. Thoracic Spine CT 12/31/17 18:23 CONCLUSION: 1. Subtle nondisplaced fracture involving the right posterior medial 12th rib. 2. No definite acute fracture or malalignment of the vertebral bodies. 3. Chronic appearing compression fracture deformities of the T12 and T2 vertebral bodies with sclerosis. Head CT 01/01/18 06:00 CONCLUSION: Stable mild right temporal cortical contusions . Discharge Plan - Discharge Order Discharge Orders: Discharge Order (Routine); Ordered 01/01/18 Ordered By: Italia Moya - Discharge Details Anticipated Discharge Date: 01/01/18 Discharge Comment: DC home with home health - family available 16/09 - Physicians Team Primary Care Provider: UNKNOWN, Attending Provider: Elroy Osullivan Other Providers: Marlon Chavira MD ; Shubham Beaulieu MD ; Elroy Osullivan MD ; Systems[facility] ; Duncan Mcconnell MD ; Italia Moya ARNP ; Trung Knight MD ; Chioma Davison MD ; Chris Mcdonald ARNP ; Jer Caicedo MD
--- NOTE | 2018-01-01 19:07 | P.PNNS ---
Subjective Interval history: This is a 87y year old male brought to [facility] as Trauma Alert by EMS with a head injury. He was reportedly standing in his driveway and fell backward , hitting his head. It is unclear if he had LOC but his family reported that he was confused after the fall. No seizure activity reported. No tongue bitting. No incontinence of stool or urine. The patient has a history of dementia and daily "sun-downing" in the evenings. hed is on coumadin and aspirin for Atrial fib. He had a GCS of 11 on EMS arrival but improved neurologically during transport. He is confused and agitated. He complains of pain to the back of his head and lower back. Past medical history, social history, family history we are Unable to Obtain due to his condition and agitation 01/01. Alert and awake. His night was uneventful. Follow up Ct of the brain done today Physical Exam Vital signs: Vital Signs 12/31/17 19:16 12/31/17 19:32 12/31/17 20:00 Temperature 97.6 F Pulse Rate 86 85 80 Respiratory Rate 61 H 77 H 22 Blood Pressure 161/94 H 165/74 H 165/74 H Pulse Oximetry 100 99 100 12/31/17 20:02 12/31/17 20:19 12/31/17 20:32 Temperature 97.6 F Pulse Rate 83 84 85 Respiratory Rate 120 H 21 110 H Blood Pressure 141/86 H 141/86 H 145/90 H Pulse Oximetry 100 100 99 12/31/17 20:35 12/31/17 21:00 12/31/17 21:02 Temperature Pulse Rate 77 78 Respiratory Rate 99 H 122 H Blood Pressure 160/84 H Pulse Oximetry 100 98 98 12/31/17 21:18 12/31/17 21:32 12/31/17 22:00 Temperature 97.9 F Pulse Rate 81 79 75 Respiratory Rate 20 113 H 116 H Blood Pressure 160/84 H 147/88 H Pulse Oximetry 97 98 97 12/31/17 22:02 12/31/17 22:57 12/31/17 23:00 Temperature Pulse Rate 75 83 82 Respiratory Rate 124 H 111 H 136 H Blood Pressure 135/74 139/87 Pulse Oximetry 97 91 L 12/31/17 23:02 12/31/17 23:32 01/01/18 00:00 Temperature 97.7 F Pulse Rate 81 81 76 Respiratory Rate 132 H 122 H 21 Blood Pressure 158/89 H 152/86 H 143/85 H Pulse Oximetry 91 L 97 98 01/01/18 00:02 01/01/18 00:32 01/01/18 01:00 Temperature Pulse Rate 75 82 78 Respiratory Rate 133 H 137 H 138 H Blood Pressure 143/85 H 154/87 H Pulse Oximetry 98 98 98 01/01/18 01:02 01/01/18 01:32 01/01/18 02:00 Temperature Pulse Rate 79 88 77 Respiratory Rate 137 H 127 H 92 H Blood Pressure 160/98 H 154/87 H Pulse Oximetry 98 97 97 01/01/18 02:02 01/01/18 02:32 01/01/18 03:00 Temperature Pulse Rate 76 80 77 Respiratory Rate 92 H 96 H 110 H Blood Pressure 144/84 H 161/90 H Pulse Oximetry 97 98 95 01/01/18 03:02 01/01/18 03:32 01/01/18 04:00 Temperature 97.7 F Pulse Rate 77 78 75 Respiratory Rate 101 H 20 19 Blood Pressure 144/89 H 140/87 141/79 H Pulse Oximetry 95 01/01/18 04:02 01/01/18 06:00 01/01/18 07:02 Temperature Pulse Rate 76 74 75 Respiratory Rate 19 23 Blood Pressure 141/79 H 141/91 H Pulse Oximetry 89 L 90 L 01/01/18 08:00 01/01/18 08:24 01/01/18 09:02 Temperature 97.6 F Pulse Rate 83 79 Respiratory Rate 25 H 26 H Blood Pressure 147/87 H 148/89 H Pulse Oximetry 95 94 L 95 01/01/18 10:00 01/01/18 11:00 Temperature Pulse Rate 75 75 Respiratory Rate 23 23 Blood Pressure 161/88 H 137/76 Pulse Oximetry 98 98 Intake & Output 01/01/18 01/01/18 01/02/18 06:59 18:59 06:59 Intake Total 761 / 761 1000 / 1000 Output Total 200 / 200 Balance 561 / 561 1000 / 1000 Weight 97 kg Intake: IV 50 / 50 1000 / 1000 LR 1000 mL Inj 1,000 ML @ 100 1000 / 1000 mls/hr IV.CONT .Q10H [facility] Rx#: [id number] NS Inj 250 ML @ 15 mls/hr IV. 50 / 50 SIG ONCE NANNETTE Rx#:[id number] Oral 240 / 240 Intake (Blood Product) Amt 471 / 471 Plt Pheresis S Leukoreduced 247 / 247 Unit [id number] Prepooled Plts Leukoreduced 5d 224 / 224 Unit [id number] Output: Urine 200 / 200 Other: # Incontinent Voids 3 # Bowel Movements 0 Narrative: Mr Tierney is alert, awake and oriented to self and agitated. Large cephalohematoma in head. GCS 14 Cranial nerve examination demonstrates the pupils to be equal, round, and reactive to light. Extra-ocular movements are intact with normal convergence. Facial motornormal and symmetrical.face sensation,hearing, visual acuity, taste, and olfaction can not be assessed due to the patient's neurological condition.Sternocleidomastoid and deltoid musclesasymmetrical. Neck is soft and supple. Muscle testing revealsnormal bulk and tonewith gross normalstrength in both upper and lowerextremities Sensory examination isgrossly normal Deep tendon reflexes are1+ and symmetrical in upper andlower extremities. Bilateral plantar flexion response. Hoffmanns sign is negative. There is no clonus or other abnormal reflexes noted. Cerebellar examinationcan not be assessed due the patient's neurological condition Lungs: clear Heart: Regular rhythm and rate Skin: warm and dry Assessment and Plan - Plan Neuro: I reviewed his follow-up CT of the brain, which show a stable temporal lobe contusion without mass-effect or midline shift. 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 May benefit by flexion extension xrays in AM. I do not see any fracture Pulmonary: aggressive pulmonary toilette, nasotracheal suction, and breathing treatments with nebulizers. Daily PT and OT Renal: Continue to monitor closely urine output, BUN and creatinine Endocrine: Continue to Monitor serial Acu checks and SSI as needed in detail ID continue to monitor for signs of infection Continue Protonix for stress ulcer prophylaxis Continue Shorty hose and SCD's for DVT prophylaxis Caprini VTE Risk Assessment Caprini VTE Risk Assessment: Moderate/High Risk (score >= 2) VTE Pharmacological Exception Reason: Hemorrhage Caprini Risk Assessment Model: Point Value = 1 Point Value = 2 Point Value = 3 Point Value = 5 Age 41-60 Minor surgery BMI > 25 kg/m2 Swollen legs Varicose veins or History of unexplained or recurrent spontaneous Oral contraceptives or hormone replacement Sepsis (< 1 month) Serious lung disease, including pneumonia (< 1 month) Abnormal pulmonary function Acute myocardial infarction Congestive heart failure (< 1 month) History of inflammatory bowel disease Medical patient at bed rest Age 61-74 Arthroscopic surgery Major open surgery (> 45 min) Laparoscopic surgery (> 45 min) Malignancy Confined to bed (> 72 hours) Immobilizing plaster cast Central venous access Age >= 75 History of VTE Family history of VTE Factor V Leiden Prothrombin [id number] Lupus anticoagulant Anticardiolipin antibodies Elevated serum homocysteine Heparin-induced thrombocytopenia Other congenital or acquired thrombophilia Stroke (< 1 month) Elective arthroplasty Hip, pelvis, or leg fracture Acute spinal cord injury (< 1 month) Prophylaxis Regimen: Total Risk Factor Score Risk Level Prophylaxis Regimen 0-1 Low Early ambulation 2 Moderate Order ONE of the following: *Sequential Compression Device (SCD) *Heparin 5000 units SQ BID 3-4 Higher Order ONE of the following medications: *Heparin 5000 units SQ TID *Enoxaparin/Lovenox 40 mg SQ daily (WT < 150 kg, CrCl > 30 mL/min) *Enoxaparin/Lovenox 30 mg SQ daily (WT < 150 kg, CrCl > 10-29 mL/min) *Enoxaparin/Lovenox 30 mg SQ BID (WT < 150 kg, CrCl > 30 mL/min) AND/OR *Sequential Compression Device (SCD) 5 or more Highest Order ONE of the following medications: *Heparin 5000 units SQ TID (Preferred with Epidurals) *Enoxaparin/Lovenox 40 mg SQ daily (WT < 150 kg, CrCl > 30 mL/min) *Enoxaparin/Lovenox 30 mg SQ daily (WT < 150 kg, CrCl > 10-29 mL/min) *Enoxaparin/Lovenox 30 mg SQ BID (WT < 150 kg, CrCl > 30 mL/min) AND *Sequential Compression Device (SCD) Discussed with trauma surgeon
== END 2018-01-01 12:34 | disposition home health service (06) ==
LOC: NEPI 18:15 → NEDA 18:37 → EDBD 18:37 → N03 18:53
PROVIDERS: ADMIT Surgery; ATTEND Surgery